=== PATIENT | female | born 1990 | race Caucasian/White ===

== ENCOUNTER 2020-05-01 22:09 | Observation (INO) | payer BC, SELFPAY ==
--- OUTSIDE RECORDS SUMMARY | 2020-05-01 22:12 | XMS REPORT | Continuity of Care Document ---
:1990 Author Organization [facility] t Address [address] [place] [address] Care Team Providers Name Role Phone Walter Quinn MD Attending Clinician Problems This patient has no known problems. Allergies, Adverse Reactions, Alerts This patient has no known allergies or adverse reactions. Medications This patient has no known medications. Procedures This patient has no known procedures. Encounters Start End Encounter Admission Attending Care Care Encounter Source Date/Time Date/Time Type Type Clinicians Facility Department ID 2020-05-01 2020-05-01 Office [place] [facility] [id number] 09:52:23 10:15:49 Visit [facility] [id number] [place] [id number] Professio [id number] nal 0[address] Office [address] 2018-12-25 2018-12-25 Emergency E [facility]BL [id number] [facility]BL 22:16:00 22:16:00 Results Test Description Test Time Test Comments Results Result Comments Source CT Brain/Head w/o 2019-01-08 Patient: Gretel CORADO 10:49:04 JASPER Date/Time01/08/2019 10:43 CSTReason for ExamHeadache(s)Repor tCT HEAD WITHOUT CONTRAST:HISTORY: Headaches, nausea, blurred visionCOMPARISON: NoneMultiple transverse images were obtained through the head. Radiation reduction was achieved by using the radiographic principal of ALARA.No abnormal areas of density are seen in the brain. The ventricular system has a normal appearance.No evidence of hemorrhage, mass or acute infarction is observed.The paranasal sinuses and mastoid air cells are well aerated.IMPRESSION:N egative study. Final Dictated by: MD Wilkins Ramon JulioDictated DT/TM: 01/08/2019 10:48 amSigned by: MD Wilkins Ramon JulioSigned (Electronic Signature): 01/08/2019 10:49 am Comprehensive Metabolic Panel 2019-01-08 10:39:14 Test Item Value Reference Range Interpretation Comme nts Sodium Level (test code = Sodium Level) 143 mmol/L 136-145 Potassium Level (test code = Potassium Level) 4.0 mmol/L 3.5-5.1 Chloride Level (test code = Chloride Level) 104 mmol/L 98-107 CO2 (test code = CO2) 27 mmol/L 21-32 Anion Gap (test code = Anion Gap) 12 mmol/L 7-16 BUN (test code = BUN) 9 mg/dL 7-18 Creatinine Level (test code = Creatinine Level) 0.70 mg/dL 0.60-1 .00 Glucose Level (test code = Glucose Level) 114 mg/dL 74-106 H Calcium Level (test code = Calcium Level) 9.0 mg/dL 8.5-10.1 Alk Phos (test code = Alk Phos) 102 IntlUnit/L 50-136 Bilirubin Total (test code = Bilirubin Total) .40 mg/dL .20-1.00 Albumin Level (test code = Albumin Level) 4.0 g/dL 3.4-5.0 Protein Total (test code = Protein Total) 7.4 g/dL 6.4-8.2 ALT (test code = ALT) 17 IntlUnit/L 12-78 AST (test code = AST) 16 IntlUnit/L 15-37 Creatine [id number] 10:39:14 Test Item Value Reference Range Interpretation Comments CK (test code = CK) 65 U/L 26-192 Comprehensive Metabolic [id number] 10:39:14 Test Item Value Reference Range Interpretation Comments Sodium Level (test code = 143 mmol/L 136-145 Sodium Level) Potassium Level (test code 4.0 mmol/L 3.5-5.1 = Potassium Level) Chloride Level (test code 104 mmol/L 98-107 = Chloride Level) CO2 (test code = CO2) 27 mmol/L 21-32 Anion Gap (test code = 12 mmol/L 7-16 Anion Gap) BUN (test code = BUN) 9 mg/dL 7-18 Creatinine Level (test 0.70 mg/dL 0.60-1.00 code = Creatinine Level) Glucose Level (test code = 114 mg/dL 74-106 H Glucose Level) Calcium Level (test code = 9.0 mg/dL 8.5-10.1 Calcium Level) Alk Phos (test code = Alk 102 IntlUnit/L 50-136 Phos) Bilirubin Total (test code .40 mg/dL .20-1.00 = Bilirubin Total) Albumin Level (test code = 4.0 g/dL 3.4-5.0 Albumin Level) Protein Total (test code = 7.4 g/dL 6.4-8.2 Protein Total) ALT (test code = ALT) 17 IntlUnit/L 12-78 AST (test code = AST) 16 IntlUnit/L 15-37 eGFR AA (test code = eGFR >60 mL/min/1.73 m2 N AA) Lipase [id number] 10:39:14 Test Item Value Reference Range Interpretation Comments Lipase Level (test code = Lipase 88 U/L 73-393 Level) Comprehensive Metabolic [id number] 10:39:14 Test Item Value Reference Range Interpretation Comments Sodium Level (test code = 143 mmol/L 136-145 Sodium Level) Potassium Level (test code 4.0 mmol/L 3.5-5.1 = Potassium Level) Chloride Level (test code 104 mmol/L 98-107 = Chloride Level) CO2 (test code = CO2) 27 mmol/L 21-32 Anion Gap (test code = 12 mmol/L 7-16 Anion Gap) BUN (test code = BUN) 9 mg/dL 7-18 Creatinine Level (test 0.70 mg/dL 0.60-1.00 code = Creatinine Level) Glucose Level (test code = 114 mg/dL 74-106 H Glucose Level) Calcium Level (test code = 9.0 mg/dL 8.5-10.1 Calcium Level) Alk Phos (test code = Alk 102 IntlUnit/L 50-136 Phos) Bilirubin Total (test code .40 mg/dL .20-1.00 = Bilirubin Total) Albumin Level (test code = 4.0 g/dL 3.4-5.0 Albumin Level) Protein Total (test code = 7.4 g/dL 6.4-8.2 Protein Total) ALT (test code = ALT) 17 IntlUnit/L 12-78 AST (test code = AST) 16 IntlUnit/L 15-37 eGFR AA (test code = eGFR >60 mL/min/1.73 m2 N AA) eGFR Non-AA (test code = >60 mL/min/1.73 m2 N eGFR Non-AA) Beta HCG [id number] 10:33:19 Test Item Value Reference Range Interpretation Comments Beta HCG, Serum Qualitative (test Negative Negative code = Beta HCG, Serum Qualitative) Complete Blood Count with [id number] 10:29:07 Test Item Value Reference Range Interpretation Comments WBC (test code = WBC) 5.4 x10 4.8-10.8 RBC (test code = RBC) 4.69 x10 4.20-5.50 Hgb (test code = Hgb) 12.6 g/dL 12.0-16.0 Hct (test code = Hct) 38.3 % 35.0-47.0 MCV (test code = MCV) 81.6 fL 80.0-95.0 RDW (test code = RDW) 11.4 % 11.5-14.5 L MCHC (test code = MCHC) 33.0 g/dL 31.0-36.0 MCH (test code = MCH) 26.9 pg 26.0-32.0 Platelets (test code = 334 x10 140-440 Platelets) MPV (test code = MPV) 8.1 fL 7.5-11.2 Slide Review (test code Auto N Resu lt created by = Slide Review) GL_SET_SLIDE _REVIEW_A UTO Instr WBC (test code = 5.4 N Instr WBC) Automated [id number] 10:29:07 Test Item Value Reference Range Interpretation Comments Neutro Auto (test code = Neutro Auto) 63.6 % N Lymph Auto (test code = Lymph Auto) 29.6 % N [place] Auto (test code = [place] Auto) 5.4 % N Eos, Auto (test code = Eos, Auto) 1.0 % N Basophil Auto (test code = Basophil 0.4 % N Auto) Neutro Absolute (test code = Neutro 3.5 x10 2.7-7.3 Absolute) Lymph Absolute (test code = Lymph 1.6 x10 0.8-3.5 Absolute) [place] Absolute (test code = [place] 0.3 x10 0.3-0.9 Absolute) Eos Absolute (test code = Eos 0.0 x10 0.0-0.3 Absolute) Baso Absolute (test code = Baso 0.0 x10 0.0-0.1 Absolute)
[2020-05-01] MEDS ORDERED: NA CHLORIDE 0.9% 1,000 ML ONE (23:16)
[2020-05-01] MEDS ORDERED: ASPIRIN EC 81 MG TAB PO ONE (23:16)
[2020-05-02 00:04] LABS: Absolute Lymphocytes (CBC) 2.4 K/uL (0.7-4.9); Basophils % 0.6 % (0-1.3); Hematocrit 38.6 % (36.0-45.0); Lymphocytes % 28.3 % (15.3-44.8); MPV 8.8 fL (7.6-11.3)
[2020-05-02 00:31] LABS: ALT/SGPT 27 U/L (12-78); AST/SGOT 12 U/L (15-37); Alkaline Phosphatase 112 U/L (45-117); BUN Blood Urea Nitrogen 9 mg/dL (7-18); Bicarbonate 25 mmol/L (21-32); Bilirubin Direct < 0.1 mg/dL (0-0.2); Bilirubin Total 0.5 mg/dL (0.2-1.0); Glucose Level 90 mg/dL (74-106); Lipase 94 U/L (73-393); Magnesium 2.4 mg/dL (1.8-2.4); Potassium 3.5 mmol/L (3.5-5.1); Protein, Total 8.2 g/dL (6.4-8.2); Sodium Level 139 mmol/L (136-145); Troponin (Emerg Dept Use Only) < 0.02 ng/mL (0.0-0.045)
--- NOTE | 2020-05-02 00:44 | EDPHYS ---
Physician Documentation [facility] Name: Arianne Glass Age: 29 yrs Sex: Female : 1990 Arrival Date: 05/01/2020 Time: 22:12 Bed 19 Private MD: ED Physician Gabe Fisher HPI: 05/01 23:59 This 29 yrs old Female presents to ER via Ambulatory with complaints of Chest stephanie Pain, Back Pain. 23:59 The patient or guardian reports chest pain that is located primarily in the substernal stephanie area. The pain radiates to back. Associated signs and symptoms: Pertinent positives: lightheadedness, shortness of breath. The chest pain is described as causing indigestion, a pressure, squeezing. Duration: The patient or guardian reports multiple episodes, with no pattern. Severity of pain: At its worst the pain was moderate in the emergency department the pain has improved. The patient has not experienced similar symptoms in the past. 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 - Social history:: Smoking status: Patient denies any tobacco usage or history of. - Family history:: not pertinent. ROS: 23:59 Constitutional: Negative for fever, chills, and weight loss, Eyes: Negative for injury, stephanie pain, redness, and discharge, ENT: Negative for injury, pain, and discharge, Neck: Negative for injury, pain, and swelling, Respiratory: Negative for shortness of breath, cough, wheezing, and pleuritic chest pain, Abdomen/GI: Negative for abdominal pain, nausea, vomiting, diarrhea, and constipation, Back: Negative for injury and pain, : Negative for injury, bleeding, discharge, and swelling, MS/Extremity: Negative for injury and deformity, Skin: Negative for injury, rash, and discoloration, Neuro: Negative for headache, weakness, numbness, tingling, and seizure, Psych: Negative for depression, anxiety, suicide ideation, homicidal ideation, and hallucinations, Allergy/Immunology: Negative for hives, rash, and allergies, Endocrine: Negative for neck swelling, polydipsia, polyuria, polyphagia, and marked weight changes, Hematologic/Lymphatic: Negative for swollen nodes, abnormal bleeding, and unusual bruising. 23:59 Cardiovascular: Positive for chest pain. Exam: 23:59 Constitutional: This is a well developed, well nourished patient who is awake, alert, stephanie and in no acute distress. Head/Face: Normocephalic, atraumatic. Eyes: Pupils equal round and reactive to light, extra-ocular motions intact. Lids and lashes normal. Conjunctiva and sclera are non-icteric and not injected. Cornea within normal limits. Periorbital areas with no swelling, redness, or edema. ENT: Nares patent. No nasal discharge, no septal abnormalities noted. Tympanic membranes are normal and external auditory canals are clear. Oropharynx with no redness, swelling, or masses, exudates, or evidence of obstruction, uvula midline. Mucous membranes moist. Neck: Trachea midline, no thyromegaly or masses palpated, and no cervical lymphadenopathy. Supple, full range of motion without nuchal rigidity, or vertebral point tenderness. No Meningismus. Chest/axilla: Normal chest wall appearance and motion. Nontender with no deformity. No lesions are appreciated. Cardiovascular: Regular rate and rhythm with a normal S1 and S2. No gallops, murmurs, or rubs. Normal PMI, no JVD. No pulse deficits. Respiratory: Lungs have equal breath sounds bilaterally, clear to auscultation and percussion. No rales, rhonchi or wheezes noted. No increased work of breathing, no retractions or nasal flaring. Abdomen/GI: Soft, non-tender, with normal bowel sounds. No distension or tympany. No guarding or rebound. No evidence of tenderness throughout. Back: No spinal tenderness. No costovertebral tenderness. Full range of motion. Female : Normal external genitalia. Skin: Warm, dry with normal turgor. Normal color with no rashes, no lesions, and no evidence of cellulitis. MS/ Extremity: Pulses equal, no cyanosis. Neurovascular intact. Full, normal range of motion. Neuro: Awake and alert, GCS 15, oriented to person, place, time, and situation. Cranial nerves II-XII grossly intact. Motor strength 5/5 in all extremities. Sensory grossly intact. Cerebellar exam normal. Normal gait. Psych: Awake, alert, with orientation to person, place and time. Behavior, mood, and affect are within normal limits. 05/02 00:03 ECG was reviewed by the Attending Physician. [facility] Vital Signs: 05/01 22:35 BP 110 / 77; Pulse 87; Resp 16; Pulse Ox 100% on R/A; sg 23:30 BP 115 / 77; Pulse 79; Resp 20; Pulse Ox 99% on R/A; ll2 05/02 00:30 BP 108 / 73; Pulse 66; Resp 20; Pulse Ox 99% on R/A; ll2 01:30 BP 117 / 75; Pulse 70; Resp 22; Pulse Ox 100% on R/A; ll2 MDM: 05/01 22:32 Patient medically screened. [facility] 05/02 00:01 Differential diagnosis: abnormal EKG, acute pericarditis, coronary artery disease stephanie cholecystitis, Cholelithiasis hiatal hernia, pancreatitis, pulmonary embolus, stable angina, thoracic aortic disection, unstable angina. HEART Score: History: Moderately Suspicious (1), ECG: Normal (0), Age: < or = 45 years (0), Risk Factors: No Risk Factors Known (0), Troponin: < or = 1 x Normal Limit (0). The patient's deep vein thrombosis risk score was calculated as follows: Total Score: 0. This patient was found to be at low risk for a deep vein thrombosis by using the Well's assessment criteria. The patient's pulmonary embolism risk score was calculated as follows: Total Score: 0-2 points. This patient was found to be at low risk for a pulmonary embolism by using the Well's assessment criteria. MIROSLAVA Risk Score: TOTAL SCORE = 0. Data reviewed: vital signs, nurses notes, lab test result(s), EKG, radiologic studies, CT scan, plain films. 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 Test interpretation: by ED physician or midlevel provider: ECG, plain radiologic studies. Counseling: I had a detailed discussion with the patient and/or guardian regarding: the historical points, exam findings, and any diagnostic results supporting the discharge/admit diagnosis, lab results, radiology results. 05/01 22:35 Order name: Basic Metabolic Panel [facility] 05/01 22:35 Order name: CBC with Diff [facility] 02/24 22:35 Order name: LFT's [facility] 05/01 22:35 Order name: Magnesium; Complete Time: 00:39 [facility] 05/01 22:35 Order name: Troponin (emerg Dept Use Only); Complete Time: 00:39 [facility] 05/01 22:35 Order name: D-Dimer; Complete Time: 00:25 [facility] 05/01 22:35 Order name: Lipase; Complete Time: 00:39 [facility] 05/01 22:35 Order name: Basic Metabolic Panel; Complete Time: 00:39 [facility] 05/01 22:35 Order name: CBC with Automated Diff; Complete Time: 00:25 [facility] 05/01 22:35 Order name: Liver (Hepatic) Function; Complete Time: 00:39 [facility] 05/02 01:23 Order name: Sedimentation Rate, [place] [facility] 05/02 01:33 Order name: Test, Serum [facility] 05/01 22:35 Order name: XRAY Chest (1 view) [facility] 05/01 22:35 Order name: EKG; Complete Time: 22:36 [facility] 05/01 22:35 Order name: Cardiac monitoring; Complete Time: 06:26 [facility] 05/01 22:35 Order name: EKG - Nurse/Tech; Complete Time: 06:26 [facility] 05/01 22:35 Order name: IV Saline Lock; Complete Time: 06:26 [facility] 05/01 23:58 Order name: CT Aorta for Dissection: pe and dissection [facility] 05/02 01:45 Order name: Urine --Ancillary (enter results) tt3 05/02 01:45 Order name: Urine Dipstick--Ancillary (enter results) tt3 05/02 01:59 Order name: SARS-COV-2 RT PCR; Complete Time: 02:25 [facility] 05/01 22:35 Order name: Labs collected and sent; Complete Time: 06:27 [facility] 05/01 22:35 Order name: O2 Per Protocol; Complete Time: 06:26 [facility] 05/01 22:35 Order name: O2 Sat Monitoring; Complete Time: 06:26 [facility] 05/01 22:35 Order name: Urine Dipstick-Ancillary (obtain specimen); Complete Time: 06:03 [facility] 05/01 22:35 Order name: Urine Test (obtain specimen); Complete Time: 06:03 [facility] EC:03 Rate is 77 beats/min. Rhythm is regular. QRS Lindsay is Normal. TN interval is normal. QRS stephanie interval is normal. QT interval is normal. No Q waves. T waves are Normal. No ST changes noted. Clinical impression: NSR w/ Non-specific ST/T Changes and No evidence of ischemia. Interpreted by me. Reviewed by me. Administered Medications: 05/01 23:00 Drug: NS 0.9% 500 ml Route: IV; Rate: bolus; Site: right antecubital; ll2 23:35 Follow up: Response: No adverse reaction; IV Status: Completed infusion; IV Intake: ll2 1000ml 23:00 Drug: Aspirin Chewable Tablet 324 mg Route: PO; ll2 05/02 00:00 Follow up: Response: No adverse reaction ll2 00:30 Drug: morphine 2 mg Route: IVP; Site: right antecubital; ll2 00:30 Drug: Zofran (Ondansetron) 4 mg Route: IVP; Site: right antecubital; ll2 01:30 Follow up: Response: No adverse reaction ll2 01:25 Not Given (Physician Discretion): Aspirin Chewable Tablet 162 mg PO once jr8 01:25 Not Given (Physician Discretion): Lopressor 25 mg PO once jr8 02:34 Drug: Pepcid 20 mg Route: IVP; Site: right antecubital; ll2 Disposition: 05/02/20 00:43 Hospitalization ordered by Michael Mckinney for Observation. Preliminary diagnosis is Other chest pain. - Bed requested for Telemetry/MedSurg (observation). - Status is Observation. ll2 - Condition is Stable. - Problem is new. - Symptoms have improved. Signatures: Dispatcher [employer] [facility] Ney Bishop RN BEBA sg Gabe Fisher MD MD cha Roszak, Josh, PA PA jr8 Elenita Cabrera RN RN tl1 Mabel Christine RN RN ll2 Corrections: (The following items were deleted from the chart) 00:55 00:43 Hospitalization Ordered by Andres Katz MD for Observation. Preliminary sg diagnosis is Other chest pain. Bed requested for Telemetry/MedSurg (observation). Status is Observation. Condition is Stable. Problem is new. Symptoms have improved. [facility] 01:11 01:03 CORONAVIRUS ordered. [facility] EDMS 02:02 00:55 05/02/2020 00:43 Hospitalization Ordered by Michael Mckinney for Observation. tl1 Preliminary diagnosis is Other chest pain. Bed requested for Telemetry/MedSurg (observation). Status is Observation. Condition is Stable. Problem is new. Symptoms have improved. sg 03:11 02:02 05/02/2020 00:43 Hospitalization Ordered by Michael Mckinney for Observation. ll2 Preliminary diagnosis is Other chest pain. Bed requested for Telemetry/MedSurg (observation). Status is Observation. Condition is Stable. Problem is new. Symptoms have improved. tl1
--- NOTE | 2020-05-02 00:44 | ER ---
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 No trauma or injury reported, states the pain has worsened tonight, states having pain in the upper back as well. Coronavirus screen: Client denies travel out of the [place] in the last 14 days. Ebola Screen: Patient negative for fever greater than or equal to 101.5 degrees Fahrenheit, and additional compatible Ebola Virus Disease symptoms Patient denies exposure to infectious person. Patient denies travel to an Ebola-affected area in the 21 days before illness onset. No symptoms or risks identified at this time. Initial Sepsis Screen: Does the patient meet any 2 criteria? No. Patient's initial sepsis screen is negative. Does the patient have a suspected source of infection? No. Patient's initial sepsis screen is negative. Risk Assessment: Do you want to hurt yourself or someone else? Patient reports no desire to harm self or others. Onset of symptoms was May 01, 2020. Care prior to arrival: None. Transition of care: patient was not received from another setting of care. 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 - Social history:: Smoking status: Patient denies any tobacco usage or history of. - Family history:: not pertinent. Screenin/25 01:51 Abuse screen: Denies threats or abuse. Nutritional screening: No deficits noted. ll2 Tuberculosis screening: No symptoms or risk factors identified. Fall Risk None identified. Assessment: 05/01 22:30 General: Appears in no apparent distress. Behavior is calm, cooperative, appropriate ll2 for age. Pain: Complains of pain in back and abdomen. Pain: Pain radiates to back Pain began suddenly. Neuro: Level of Consciousness is awake, alert, obeys commands, Oriented to person, place, time, situation. Cardiovascular: Patient's skin is warm and dry. Respiratory: Airway is patent Respiratory effort is even, unlabored, Respiratory pattern is regular, symmetrical. GI: No signs and/or symptoms were reported involving the gastrointestinal system. : No signs and/or symptoms were reported regarding the genitourinary system. EENT: No signs and/or symptoms were reported regarding the EENT system. Derm: Skin is intact, is healthy with good turgor, Skin is pink, warm \T\ dry. 23:30 Reassessment: Patient and/or family updated on plan of care and expected duration. Pain ll2 level reassessed. Patient is alert, oriented x 3, equal unlabored respirations, skin warm/dry/pink. 05/02 00:30 Reassessment: Patient and/or family updated on plan of care and expected duration. Pain ll2 level reassessed. Patient is alert, oriented x 3, equal unlabored respirations, skin warm/dry/pink. 01:30 Reassessment: Patient and/or family updated on plan of care and expected duration. Pain ll2 level reassessed. Patient is alert, oriented x 3, equal unlabored respirations, skin warm/dry/pink. Vital Signs: 05/01 22:35 BP 110 / 77; Pulse 87; Resp 16; Pulse Ox 100% on R/A; sg 23:30 BP 115 / 77; Pulse 79; Resp 20; Pulse Ox 99% on R/A; ll2 05/02 00:30 BP 108 / 73; Pulse 66; Resp 20; Pulse Ox 99% on R/A; ll2 01:30 BP 117 / 75; Pulse 70; Resp 22; Pulse Ox 100% on R/A; ll2 ED Course: 05/01 22:12 Patient arrived in ED. am4 22:30 Initial lab(s) drawn, by me, sent to lab. COVID swab sent to lab. Inserted saline lock: ll2 20 gauge in right antecubital area, using aseptic technique. Blood collected. Patient maintains SpO2 saturation greater than 95% on room air. 22:32 Gabe Fisher MD is Attending Physician. stephanie 22:32 Arm band placed on. sg 22:34 Triage completed. sg 22:54 Mabel Christine RN is Primary Nurse. ll2 22:55 XRAY Chest (1 view) In Process Unspecified. EDMS 05/02 00:39 Andres Katz MD is Hospitalizing Provider. stephanie 00:54 Michael Mckinney is Hospitalizing Provider. sg 01:51 Patient has correct armband on for positive identification. Placed in gown. Bed in low ll2 position. Call light in reach. Side rails up X 1. panel monitor on. Pulse ox on. NIBP on. 01:51 No provider procedures requiring assistance completed. ll2 02:18 CT Aorta for Dissection: pe and dissection In Process Unspecified. EDMS 03:11 Patient transferred, IV remains in place. ll2 06:26 LFT's Sent. ll2 06:26 CBC with Diff Sent. ll2 06:26 Basic Metabolic Panel Sent. ll2 Administered Medications: 05/01 23:00 Drug: NS 0.9% 500 ml Route: IV; Rate: bolus; Site: right antecubital; ll2 23:35 Follow up: Response: No adverse reaction; IV Status: Completed infusion; IV Intake: ll2 1000ml 23:00 Drug: Aspirin Chewable Tablet 324 mg Route: PO; ll2 05/02 00:00 Follow up: Response: No adverse reaction ll2 00:30 Drug: morphine 2 mg Route: IVP; Site: right antecubital; ll2 00:30 Drug: Zofran (Ondansetron) 4 mg Route: IVP; Site: right antecubital; ll2 01:30 Follow up: Response: No adverse reaction ll2 01:25 Not Given (Physician Discretion): Aspirin Chewable Tablet 162 mg PO once jr8 01:25 Not Given (Physician Discretion): Lopressor 25 mg PO once jr8 02:34 Drug: Pepcid 20 mg Route: IVP; Site: right antecubital; ll2 Intake: 05/01 23:35 IV: 1000ml; Total: 1000ml. ll2 Outcome: 05/02 00:43 Decision to Hospitalize by Provider. stephanie 03:09 Admitted to Med/surg accompanied by tech, via wheelchair, Report called to BEBA breaux ll2 03:09 Condition: stable 03:09 Instructed on the need for admit. 03:11 Patient left the ED. ll2 Signatures: Dispatcher [employer] EDNey Hernández RN RN sg Anderson, Corey, MD MD cha [place], Lacie, RN RN ll2 Dana Meadows Josh PA jr8
[2020-05-02] MEDS ORDERED: ONDANSETRON 4 MG/2 ML VIAL ONE (00:48)
[2020-05-02] MEDS ORDERED: MORPHINE 2 MG/ML SYR ONE (00:48)
[2020-05-02] MEDS ORDERED: FAMOTIDINE 20 MG/2 ML VIAL IV ONE (01:31)
[2020-05-02] MEDS ORDERED: METOPROLOL TAR 25 MG TAB ONE (01:37)
--- NOTE | 2020-05-02 02:40 | P.HP ---
Certification for Inpatient Patient admitted to: Observation With expected LOS: <2 Midnights Patient will require the following post-hospital care: None Practitioner: I am a practitioner with admitting privileges, knowledge of patient current condition, hospital course, and medical plan of care. Services: Services provided to patient in accordance with Admission requirements found in Title 42 Section 412.3 of the Code of Federal Regulations <Trevin Cain - Last Filed: 05/02/20 02:34> Patient History Date of Service: 05/02/20 Primary Care Provider: [facility] Reason for admission: Chest Pain History of Present Illness: This is a 29 y/o F with no medical or surgical history that presented to ED after having persistent chest pressure that started this morning. Patient describes pain as pressure and crushing in nature. Radiation to back, left arm, and neck. Denies n/v, diaphoresis. Stated that she has never had something like this before. Nothing makes it better or worse. Tried taking two rounds of ibuprofen throughout day along with antacids but still without relief. Stated that her grandfathers on both sides had MIs in there 40s and bypass surgery. Patient worked up in ER and found to have troponin < 0.02. Sodium 139, potassium 3.5, chloride 106, bicarb 25, BUN 9, creatinine 0.71, and glucose of 90. H/H 12.8 and 38.6 respectively. WBC 8.6 and platelet of 375. CXR and dissection CT negative. EKG without acute ischemia. Patient stated that she was finally able to get some relief with morphine. Medicine consulted at that time for further evaluation and admission. Home medications list reviewed: Yes - Past Medical/Surgical History Has patient received pneumonia vaccine in the past: No Diabetic: No Past Medical History: Patient denies medical history Past Surgical History: Patient denies surgical history - Social History Smoking Status: Never smoker Smoking therapy provided: No Alcohol use: Yes CD- Drugs: No Caffeine use: Yes Place of Residence: Home <Trevin Cain - Last Filed: 05/02/20 02:34> Date of Service: 05/02/20 - Family History Father -: Heart disease, Hypertension, Seizures Mother -: Diabetes, Other (see notes) Notes: Uterine tumour <stormy painting - Last Filed: 05/02/20 12:09> Allergies No Known Allergies Allergy (Unverified 05/02/20 01:02) Home Medications: Aspirin [Aspirin EC 81 MG] 81 mg PO DAILY #30 tablet. 05/02/20 Atorvastatin Calcium [Lipitor] 20 mg PO BEDTIME #30 tab 05/02/20 Review of Systems General: Unremarkable Eyes: Unremarkable ENT: Unremarkable Respiratory: Unremarkable Cardiovascular: Chest Pain Gastrointestinal: Unremarkable Genitourinary: Unremarkable Musculoskeletal: Unremarkable Integumentary: Unremarkable Neurological: Unremarkable Lymphatics: Unremarkable <Trevin Cain - Last Filed: 05/02/20 02:34> Physical Examination - Vital Signs Blood Pressure: 117/75 Pulse: 70 Respirations: 16 Pulse Ox (%): 100 - Physical Exam General: Alert, In no apparent distress, Oriented x3, Cooperative HEENT: PERRLA, Mucous membr. moist/pink, EOMI Neck: Supple, 2+ carotid pulse no bruit, JVD not distended, No Thyromegaly Respiratory: Clear to auscultation bilaterally, Normal air movement Cardiovascular: No edema, Normal pulses, Regular rate/rhythm, Normal S1 S2, No gallops, No rubs, No murmurs Capillary refill: <2 Seconds Gastrointestinal: Normal bowel sounds, Soft and benign, Non-distended, No ascites, No tenderness, No masses, No rebound, No guarding Musculoskeletal: No clubbing, No swelling, No contractures, No erythema, No tenderness, No warmth Integumentary: No rashes, No breakdown, No significant lesion, No tenderness/swelling, No erythema, No warmth, No cyanosis Neurological: Normal speech, Normal strength at 5/5 x4 extr, Normal tone, Sensation intact, Cranial nerves 3-12 intact, Normal affect Lymphatics: No axilla or inguinal lymphadenopathy - Studies Laboratory Data (last 24 hrs) 05/01/20 23:52: WBC 8.60, Hgb 12.8, Hct 38.6, Plt Count 375 05/01/20 23:52: Sodium 139, Potassium 3.5, BUN 9, Creatinine 0.71, Glucose 90, Magnesium 2.4, Total Bilirubin 0.5, AST 12 L, ALT 27, Alkaline Phosphatase 112, Lipase 94 <Trevin Cain - Last Filed: 05/02/20 02:34> - Studies Laboratory Data (last 24 hrs) 05/01/20 23:52: WBC 8.60, Hgb 12.8, Hct 38.6, Plt Count 375 05/01/20 23:52: Sodium 139, Potassium 3.5, BUN 9, Creatinine 0.71, Glucose 90, Magnesium 2.4, Total Bilirubin 0.5, AST 12 L, ALT 27, Alkaline Phosphatase 112, Lipase 94 <stormy painting - Last Filed: 05/02/20 12:09> Assessment and Plan - Problems (Diagnosis) (1) Chest pain Current Visit: Yes Status: Acute Qualifiers: Chest pain type: unspecified Qualified Code(s): R07.9 - Chest pain, unspecified - Plan 1. Patient admitted to telemetry unit for observation where she will be on cardiac monitoring and will have repeat v/s 2. Patient will have trended troponins and EKGs as necessary 3. Aspirin daily 4. Cardiology consulted for further recommendations Discharge Plan: Home Plan to discharge in: 24 Hours - Advance Directives Does patient have a Living Will: No Does patient have a Durable POA for Healthcare: No - Code Status/Comfort Care Code Status Assessed: Yes Code Status: Full Code Critical Care: No Time Spent Managing Pts Care (In Minutes): 70 <Trevin Cain - Last Filed: 05/02/20 02:34> Physician Review: Patient Assessed, Agree with Above Assessment and Plan Physician Review Additional Text: Chest pain Significant family history of CAD. other risk factors: Obesity. Plan: Trend troponin. Start aspirin <stormy painting - Last Filed: 05/02/20 12:09>
[2020-05-02] MEDS ORDERED: LORazepam 2 MG/ML VIAL ONE (03:13)
[2020-05-02 03:18] VITALS: BMI 37.6
[2020-05-02] MEDS ORDERED: ONDANSETRON 4 MG/2 ML VIAL IV PRN (03:22)
[2020-05-02] MEDS ORDERED: ACETAMINOPHEN 500 MG TAB PO PRN (03:22)
[2020-05-02] MEDS ORDERED: MORPHINE 4 MG/ML SYR IV PRN (03:22)
--- NOTE | 2020-05-02 05:35 | EKG ---
Test Date: 2020-05-01 Test Time: 23:12:51 [employer] Principal: LL MEASUREMENT RESULTS: Intervals: Rate: 77 MS: 172 QRSD: 90 QT: 384 QTc: 434 Lorraine: P: 57 MS: 172 QRS: 27 T: 53 INTERPRETIVE STATEMENTS: Normal sinus rhythm Possible Left atrial enlargement Borderline ECG No previous ECG available for comparison Electronically Signed On 05-02-20 05:35:13 AUTOMOTIVE REFINISHER by Tong Alvarenga
[2020-05-02] MEDS ORDERED: LORazepam 2 MG/ML VIAL IV ONE (06:30)
--- NOTE | 2020-05-02 07:36 | RAD REPORT ---
EXAM DESCRIPTION: RAD - Chest Single View - 05/01/2020 10:55 pm CLINICAL HISTORY: CHEST PAIN TECHNIQUE: AP portable chest image was obtained 05/01/2020 10:55 pm . FINDINGS: Lungs are clear. Overlying than soft tissue density increases opacification over the lower lung holcomb. Heart and vasculature are normal. No measurable pleural effusion and no pneumothorax. N o acute bony abnormality seen. No acute aortic findings suspected. IMPRESSION: No acute cardiopulmonary process.
[2020-05-02] MEDS ORDERED: ASPIRIN EC 81 MG TAB PO SCH (09:00)
[2020-05-02] MEDS ORDERED: INFLUENZA VACCINE (for 3y+) 0.5 ML DOSE IMVAC ONE (10:00)
[2020-05-02 10:44] VITALS: O2SAT 98
[2020-05-02 12:07] VITALS: BP 110/60; TEMP 97.9
--- NOTE | 2020-05-02 12:14 | P.DS ---
Admission Date: 05/02/20 Discharge Date: 05/02/20 Primary Care Provider: [facility] Clinic Disposition: ROUTINE DISCHARGE Discharge Condition: FAIR Reason for Admission: Chest Pain - Problems (1) Obesity Current Visit: Yes Status: Acute (2) Hyperlipidemia Current Visit: Yes Status: Acute (3) Chest pain Current Visit: Yes Status: Acute Qualifiers: Chest pain type: unspecified Qualified Code(s): R07.9 - Chest pain, unspecified Brief History of Present Illness: 29-year-old woman with no known past medical history presented to the emergency department with a complaint of chest pain of sudden onset. Her initial troponin in the ED was negative. Chest x-ray unremarkable. CTA thorax was performed which was negative for aortic dissection. Patient reports a significant history of coronary artery disease in the family. She was hospitalized for ACS rule out. Hospital Course: Patient placed under observation. Troponin trended negative. She was chest pain-free during the observation period. Her vitals were stable, EKG showed no ischemic changes. ACS has been ruled out. Her total cholesterol 179 and LDL 110. Stress test is recommended. Patient prefers exercise stress test to nuclear stress test. Dr. Alvarenga has been informed and patient is discharged to follow with Dr. Alvarenga 's office tomorrow for arrangement for stress test. She is prescribed aspirin and lipitor. Vital Signs/Physical Exam: Temp Pulse Resp BP Pulse Ox 97.9 F 80 16 110/60 100 05/02/20 12:00 05/02/20 12:00 05/02/20 12:00 05/02/20 12:00 05/02/20 12:00 General: Alert, In no apparent distress, Oriented x3 Neck: Supple, JVD not distended Respiratory: Clear to auscultation bilaterally, Normal air movement Cardiovascular: No edema, Regular rate/rhythm, Normal S1 S2 Gastrointestinal: Soft and benign, Non-distended Musculoskeletal: No swelling Integumentary: No rashes Neurological: Other (No focal motor deficit.) Laboratory Data at Discharge: WBC 8.60 K/uL (4.3-10.9) 05/01/20 23:52 Hgb 12.8 g/dL (12.0-15.0) 05/01/20 23:52 Hct 38.6 % (36.0-45.0) 05/01/20 23:52 Plt Count 375 K/uL (152-406) 05/01/20 23:52 Sodium 139 mmol/L (136-145) 05/01/20 23:52 Potassium 3.5 mmol/L (3.5-5.1) 05/01/20 23:52 BUN 9 mg/dL (7-18) 05/01/20 23:52 Creatinine 0.71 mg/dL (0.55-1.3) 05/01/20 23:52 Glucose 90 mg/dL (74-106) 05/01/20 23:52 Magnesium 2.4 mg/dL (1.8-2.4) 05/01/20 23:52 Total Bilirubin 0.5 mg/dL (0.2-1.0) 05/01/20 23:52 AST 12 U/L (15-37) L 05/01/20 23:52 ALT 27 U/L (12-78) 05/01/20 23:52 Alkaline Phosphatase 112 U/L (45-117) 05/01/20 23:52 Troponin I < 0.02 ng/mL (0.0-0.045) 05/02/20 07:08 Triglycerides 105 mg/dL (<150) 05/02/20 03:56 Cholesterol 179 mg/dL (<200) 05/02/20 03:56 HDL Cholesterol 48 mg/dL (40-60) 05/02/20 03:56 Cholesterol/HDL Ratio 3.73 05/02/20 03:56 Lipase 94 U/L (73-393) 05/01/20 23:52 Home Medications: Aspirin [Aspirin EC 81 MG] 81 mg PO DAILY #30 tablet. 05/02/20 Atorvastatin Calcium [Lipitor] 20 mg PO BEDTIME #30 tab 05/02/20 New Medications: Aspirin [Aspirin EC 81 MG] 81 mg PO DAILY #30 tablet. Atorvastatin Calcium [Lipitor] 20 mg PO BEDTIME #30 tab Physician Discharge Instructions: Please call Dr. Alvarenga's office tomorrow for arrangement for Exercise stress test. Diet: AHA Activity: Ad lisa Followup: Tong Alvarenga MD [ACTIVE - CAN ADMIT] - 1-2 Days Unknown,U [Primary Care Provider] -
--- NOTE | 2020-05-02 15:43 | RAD REPORT ---
EXAM DESCRIPTION: CT - Angio Aorta For Dissection - 05/02/2020 7:01 am CLINICAL HISTORY: The patient is 29 years old and is Female; CHEST PAIN TECHNIQUE: Axial computed tomographic angiography images of the chest, abdomen and pelvis with intra venous contrast. Sagittal and coronal reformatted images were created and reviewed. This CT exam was performed using one or more of the following dose reduction techniques: automated exposure cont rol, adjustment of the mA and/or kV according to patient size, and/or use of iterative reconstruction technique. MIP reconstructed images were created and reviewed. COMPARISON: No relevant prior studies available. FINDINGS: LIMITATIONS: Examination is limited secondary to the timing of contrast. VASCULATURE: AORTA: No acute findings. No aortic aneurysm. Contrast timing suboptimal to evaluate for dissec tion. PULMONARY ARTERIES: Unremarkable as visualized. Contrast is suboptimal to evaluate for pulmonary thromboembolus. GREAT VESSELS OF AORTIC ARCH: No acute findings. Contrast is suboptimal to evaluate for dissectio n. No arterial occlusion or significant stenosis. CELIAC TRUNK AND MESENTERIC ARTERIES: No acute findings. No occlusion or significant stenosis. RENAL ARTERIES: No acute findings. No occlusion or significant stenosis. ILIAC ARTERIES: No acute findings. No occlusion or significant stenosis. CHEST: LUNGS: A 3 mm left lower lobe pulmonary nodule is present. No follow-up imaging is recommended. T he lungs are otherwise clear. The tracheobronchial tree is widely patent. PLEURAL SPACE: Unremarkable. No significant effusion. No pneumothorax. HEART: Unremarkable. No cardiomegaly. No significant pericardial effusion. ABDOMEN: LIVER: The liver is enlarged and mildly fatty. GALLBLADDER AND BILE DUCTS: Unremarkable. No calcified stones. No ductal dilation. PANCREAS: Unremarkable. No ductal dilation. No mass. SPLEEN: Unremarkable. No splenomegaly. ADRENALS: Unremarkable. No mass. KIDNEYS AND URETERS: There is no hydronephrosis or hydroureter of either kidney. Contrast is note d throughout the ureters. No solid mass. STOMACH AND BOWEL: The stomach is filled with fluid and air. The small bowel is normal in caliber . Minimal stool is noted throughout the colon. There is no mucosal thickening or evidence of bowel ob struction. PELVIS: APPENDIX: The appendix is normal in caliber without surrounding inflammation. BLADDER: The bladder is well distended. REPRODUCTIVE: Unremarkable as visualized. CHEST, ABDOMEN and PELVIS: INTRAPERITONEAL SPACE: Unremarkable. No significant fluid collection. No free air. BONES/JOINTS: No acute fracture. No dislocation. SOFT TISSUES: Bilateral breast implants are present. LYMPH NODES: Unremarkable. No enlarged lymph nodes. IMPRESSION: 1. No evidence of aortic aneurysm. Evaluation for dissection is suboptimal secondary t o the timing of contrast. 2. No acute findings on this contrasted CT of the chest, abdomen, and pelvis to explain the patient 's symptoms. Electronically signed by: Kassi Sifuentes MD 05/02/2020 2:26 AM APPLIED STATISTICIAN Due to temporary technical issues with the PACS/Fluency reporting system, reports are being signed by the in house radiologists without review as a courtesy to insure prompt reporting. The interpreting radiologist is fully responsible for the content of the report.
== END 2020-05-02 13:59 | disposition home or self-care (01) ==
LOC: ER 22:09 → 2ND 05-02 02:22
PROVIDERS: ADMIT Internal Medicine; ATTEND Internal Medicine
DX: R07.9 Chest pain, unspecified (principal); E78.5 Hyperlipidemia, unspecified; E66.9 Obesity, unspecified; Z68.37 Body mass index [BMI] 37.0-37.9, adult; Z20.822 Contact with and (suspected) exposure to COVID-19; Z79.82 Long term (current) use of aspirin; Z82.49 Family history of ischemic heart disease and other diseases of the circulatory system; Z83.3 Family history of diabetes mellitus; Z82.0 Family history of epilepsy and other diseases of the nervous system
CPT/HCPCS: 36415; 71045; 71275; 74175; 80048; 80061; 80076; 82947; 83690; 83735; 84484; 84703; 85025; 85379; 85652; 93005; 96361; 96374; 96375; 99285; G0378; J2270; J2405; J7030; Q9967; U0003

== ENCOUNTER 2020-05-19 19:26 | Emergency (ER) | payer SELFPAY ==
--- OUTSIDE RECORDS SUMMARY | 2020-05-19 19:28 | XMS REPORT | Continuity of Care Document ---
:1990 Author Organization [facility] t Address [address] [place] [address] Care Team Providers Name Role Phone Charu CAGE Attending Clinician Sagar BARNARD Attending Clinician Walter Quinn MD Attending Clinician Problems This patient has no known problems. Allergies, Adverse Reactions, Alerts This patient has no known allergies or adverse reactions. Medications This patient has no known medications. Procedures This patient has no known procedures. Encounters Start End Encounter Admission Attending Care Care Encounter Source Date/Time Date/Time Type Type Clinicians Facility Department ID 2020-05-17 2020-05-17 Emergency E [facility] [id number] 20:32:00 20:32:00 2020-05-03 2020-05-03 Refill ROEL Box [id number] 00:00:00 00:00:00 Sheila Chaordix [id number] Dez [id number] Ingrid [id number] nal [address] 2020-05-02 2020-05-02 Telephone ROEL Keith [id number] 00:00:00 00:00:00 [place] Garces [id number] [place] [id number] Ingrid [id number] nal 059 Building 2020-05-01 2020-05-01 Office ROEL Quinn [id number] 09:52:23 10:15:49 Visit [facility] [id number] Walter Garces [id number] Ingrid [id number] nal 044 [address] 2018-12-25 2018-12-25 [...] code = AST) 16 IntlUnit/L 15-37 Creatine [id number] 10:39:14 Test Item Value Reference Range Interpretation Comments CK (test code = CK) 65 U/L 26-192 Comprehensive Metabolic [id number] 10:39:14 Test Item Value Reference Range Interpretation [...] eGFR >60 mL/min/1.73 m2 N AA) Lipase [id number] 10:39:14 Test Item Value Reference Range Interpretation Comments Lipase Level (test code = Lipase 88 U/L 73-393 Level) Comprehensive Metabolic [id number] 10:39:14 Test Item Value Reference Range Interpretation [...] mL/min/1.73 m2 N eGFR Non-AA) Beta HCG [id number] 10:33:19 Test Item Value Reference Range Interpretation Comments Beta HCG, Serum Qualitative (test Negative Negative code = Beta HCG, Serum Qualitative) Complete Blood Count with [id number] 10:29:07 Test Item Value Reference Range Interpretation [...] code = 5.4 N Instr WBC) Automated [id number] 10:29:07 Test Item Value Reference Range Interpretation Comments Neutro Auto (test code = Neutro Auto) 63.6 % N Lymph Auto (test code = Lymph Auto) 29.6 % N [place] Auto (test code = [place] Auto) 5.4 % N Eos, Auto (test code = Eos, Auto) 1.0 % N Basophil Auto (test code = Basophil 0.4 % N Auto) Neutro Absolute (test code = Neutro 3.5 x10 2.7-7.3 Absolute) Lymph Absolute (test code = Lymph 1.6 x10 0.8-3.5 Absolute) [place] Absolute (test code = [place] 0.3 x10 0.3-0.9 Absolute) Eos Absolute (test code = Eos 0.0 x10 0.0-0.3 Absolute) Baso Absolute (test code = Baso 0.0 x10 0.0-0.1 Absolute)
[2020-05-19 21:31] LABS: Absolute Lymphocytes (CBC) 1.8 K/uL (0.7-4.9); Basophils % 0.4 % (0-1.3); MPV 8.8 fL (7.6-11.3); RBC Red Blood Cell Count 4.86 M/uL (3.86-4.86)
[2020-05-19 21:42] LABS: BUN Blood Urea Nitrogen 9 mg/dL (7-18); Bicarbonate 26 mmol/L (21-32); Glucose Level 91 mg/dL (74-106); Potassium 3.7 mmol/L (3.5-5.1); Sodium Level 139 mmol/L (136-145)
--- NOTE | 2020-05-19 22:44 | EDPHYS ---
Physician Documentation [facility] Name: Arianne Glass Age: 30 yrs Sex: Female : 1990 Arrival Date: 05/19/2020 Time: 19:27 Bed 14 Private MD: ED Physician Homar Ag HPI: 05/19 23:46 This 30 yrs old Female presents to ER via Ambulatory with complaints of Neck kb Swelling, Sore Throat. 23:46 The patient or guardian complains of pain, tenderness. The symptoms are located on the kb left sternocleidomastoid and left posterior aspect of neck. Onset: The symptoms/episode began/occurred 1 month(s) ago. Context: The problem was sustained at home, The neck injury/problem resulted from from unknown cause. Associated signs and symptoms: Pertinent positives: feels like something is in throat and left tonsil appears bigger, Pertinent negatives: chills, fever, The patient denies any alcohol use. The patient is not apparently intoxicated. No neurological symptoms were experienced by the patient prior to arrival in the emergency department. The pain does not radiate. Modifying factors: The symptoms are alleviated by nothing. the symptoms are aggravated by nothing. Severity of symptoms: At their worst the symptoms were mild, moderate, in the emergency department the symptoms are unchanged. The patient has not experienced similar symptoms in the past. The patient has not recently seen a physician. 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 - Social history:: Smoking status: Patient denies any tobacco usage or history of. ROS: 23:44 Constitutional: Negative for fever, chills, and weight loss, Cardiovascular: Negative kb for chest pain, palpitations, and edema, Respiratory: Negative for shortness of breath, cough, wheezing, and pleuritic chest pain, Abdomen/GI: Negative for abdominal pain, nausea, vomiting, diarrhea, and constipation. 23:44 ENT: Positive for foreign body sensation, sore throat. 23:44 Neuro: Positive for headache. Exam: 23:44 Constitutional: This is a well developed, well nourished patient who is awake, alert, kb and in no acute distress. Head/Face: Normocephalic, atraumatic. Cardiovascular: Regular rate and rhythm with a normal S1 and S2. No gallops, murmurs, or rubs. No pulse deficits. Respiratory: Respirations even and unlabored. No increased work of breathing, no retractions or nasal flaring. Abdomen/GI: Soft, non-tender. No distention Skin: Warm, dry with normal turgor. Normal color with no rashes, no lesions, and no evidence of cellulitis. MS/ Extremity: Pulses equal, no cyanosis. Neurovascular intact. Full, normal range of motion. Neuro: Awake and alert, GCS 15, oriented to person, place, time, and situation. Moves all extremities. Normal gait. 23:44 ENT: Nose: is normal, Mouth: is normal, Posterior pharynx: is normal. 23:44 Neck: Lymph nodes: lymphadenopathy is appreciated, anterior cervical nodes. Vital Signs: 20:12 BP 105 / 81; Pulse 84; Resp 17; Temp 98.7; Pulse Ox 100% ; Weight 104.33 kg; Height 5 ll1 ft. 7 in. (170.18 cm); Pain 4/10; 22:30 BP 106 / 70; Pulse 72; Resp 18; Pulse Ox 100% on R/A; wh 20:12 Body Mass Index 36.02 (104.33 kg, 170.18 cm) ll1 MDM: 20:56 Patient medically screened. kb 23:44 Data reviewed: vital signs, nurses notes. Data interpreted: Pulse oximetry: on room air kb is 100 %. Interpretation: normal. Counseling: I had a detailed discussion with the patient and/or guardian regarding: the historical points, exam findings, and any diagnostic results supporting the discharge/admit diagnosis, lab results, radiology results, the need for outpatient follow up, a family practitioner, to return to the emergency department if symptoms worsen or persist or if there are any questions or concerns that arise at home. 05/20 00:03 ED course: Pt called and reports vomiting x3 since taking augmentin. Pt educated not to kb continue augmentin that was prescribed. I called zithromax and zofran into [facility] in [place]. 05/19 19:44 Order name: Strep; Complete Time: 22:00 tw4 05/19 21:07 Order name: CBC with Diff kb 05/19 21:07 Order name: Basic Metabolic Panel; Complete Time: 22:00 kb 05/19 21:07 Order name: Tensas Screen Profile; Complete Time: 22:00 kb 05/19 21:08 Order name: CBC with Automated Diff; Complete Time: 22:00 EDMS 05/19 21:27 Order name: Throat Culture EDWI 05/19 21:07 Order name: IV Start; Complete Time: 21:17 kb 05/19 21:07 Order name: CT Soft Tissue Neck W/contr kb Administered Medications: 05/19 22:51 Drug: Augmentin (Amoxicillin-Clavulanate) 875 mg Route: PO; wh 22:55 Follow up: Response: No adverse reaction Disposition: 05/20 05:35 Co-signature as Attending Physician, Homar Ag MD I agree with the assessment and tw4 plan of care. Disposition: 05/19/20 22:43 Discharged to Home. Impression: Acute sinusitis. - Condition is Stable. - Discharge Instructions: Sinusitis, Adult, [id number]. - Prescriptions for Augmentin 875- 125 mg Oral Tablet - take 1 tablet by ORAL route every 12 hours for 10 days; 20 tablet. - Medication Reconciliation Form, Thank You Letter, Antibiotic Education, Prescription Opioid Use form. - Follow up: Emergency Department; When: As needed; Reason: Worsening of condition. Follow up: Private Physician; When: 2 - 3 days; Reason: Recheck today's complaints, Continuance of care, Re-evaluation by your physician. Signatures: Dispatcher [employer] [facility] Tammy Haines, CHANTELLE CAGE-Ramin Grossman, RN RN Homar Ag MD MD tw4 Alyssa Michele RN RN ll1 Corrections: (The following items were deleted from the chart) 05/19 22:56 22:43 05/19/2020 22:43 Discharged to Home. Impression: Acute sinusitis. Condition is wh Stable. Forms are Medication Reconciliation Form, Thank You Letter, Antibiotic Education, Prescription Opioid Use. Follow up: Emergency Department; When: As needed; Reason: Worsening of condition. Follow up: Private Physician; When: 2 - 3 days; Reason: Recheck today's complaints, Continuance of care, Re-evaluation by your physician. kb
--- NOTE | 2020-05-19 22:44 | ER ---
Nurse's Notes [facility] Name: Arianne Galss Age: 30 yrs Sex: Female : 1990 Arrival Date: 05/19/2020 Time: 19:27 Bed 14 Private MD: Diagnosis: Acute sinusitis Presentation: 05/19 20:12 Chief complaint: Patient states: Sore throat, neck pain, BEDOYA, body aches for 3 weeks. No ll1 known fever. + nausea. Coronavirus screen: Client denies travel out of the [place] in the last 14 days. difficulty breathing, fatigue, headache, muscle pain, nausea, shortness of breath, sore throat, loss of taste or smell, Client presents with at least one sign or symptom that may indicate coronavirus-19. Standard/surgical mask placed on the client. Ebola Screen: Patient denies travel to an Ebola-affected area in the 21 days before illness onset. Acute neurological deficit: none identified. Initial Sepsis Screen: Does the patient meet any 2 criteria? No. Patient's initial sepsis screen is negative. Does the patient have a suspected source of infection? Yes: Other: throat. Risk Assessment: Do you want to hurt yourself or someone else? Patient reports no desire to harm self or others. Onset of symptoms was April 28, 2020. 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 - Social history:: Smoking status: Patient denies any tobacco usage or history of. Screenin:30 Abuse screen: Denies threats or abuse. Denies injuries from another. Nutritional wh screening: No deficits noted. Tuberculosis screening: No symptoms or risk factors identified. Fall Risk None identified. Assessment: 21:30 General: Appears in no apparent distress. Behavior is calm, cooperative, appropriate wh for age. Pain: Denies pain. Neuro: Level of Consciousness is awake, alert, obeys commands, Oriented to person, place, time, situation, Appropriate for age. Cardiovascular: Capillary refill < 3 seconds. Respiratory: Airway is patent Respiratory effort is even, unlabored, Respiratory pattern is regular, symmetrical. GI: Abdomen is non-distended. : No signs and/or symptoms were reported regarding the genitourinary system. EENT: Throat is pink. Derm: Skin is intact, is healthy with good turgor, Skin is pink, warm \T\ dry. normal. Musculoskeletal: Circulation, motion, and sensation intact. 22:40 Reassessment: Patient appears in no apparent distress at this time. No changes from previously documented assessment. Patient and/or family updated on plan of care and expected duration. Pain level reassessed. Patient is alert, oriented x 3, equal unlabored respirations, skin warm/dry/pink. Vital Signs: 20:12 BP 105 / 81; Pulse 84; Resp 17; Temp 98.7; Pulse Ox 100% ; Weight 104.33 kg; Height 5 ll1 ft. 7 in. (170.18 cm); Pain 4/10; 22:30 BP 106 / 70; Pulse 72; Resp 18; Pulse Ox 100% on R/A; wh 20:12 Body Mass Index 36.02 (104.33 kg, 170.18 cm) ll1 ED Course: 19:27 Patient arrived in ED. cl3 20:14 Triage completed. ll1 20:15 Arm band placed on. ll1 20:56 Ramin Paulino, RN is Primary Nurse. 20:56 Tammy Haines FNP-C is PHCP. kb 20:56 Homar Ag MD is Attending Physician. kb 21:30 Patient has correct armband on for positive identification. Bed in low position. Call light in reach. Side rails up X 1. Pulse ox on. NIBP on. 21:30 Inserted saline lock: 20 gauge in right antecubital area, using aseptic technique. Blood collected. 22:06 CT Soft Tissue Neck W/contr In Process Unspecified. EDMS 22:56 No provider procedures requiring assistance completed. IV discontinued, intact, bleeding controlled, No redness/swelling at site. Administered Medications: 22:51 Drug: Augmentin (Amoxicillin-Clavulanate) 875 mg Route: PO; 22:55 Follow up: Response: No adverse reaction Outcome: 22:43 Discharge ordered by . kb 22:56 Discharged to home ambulatory. 22:56 Condition: stable 22:56 Discharge instructions given to patient, Instructed on discharge instructions, follow up and referral plans. medication usage, POC Demonstrated understanding of instructions, follow-up care, medications, POC Prescriptions given X 1. 22:56 Patient left the ED. Signatures: Dispatcher [employer] EDMS Tammy Haines, NILES-Cal CAGE-Ramin Grossman RN RN Matt Michele cl3 Alyssa Michele RN RN ll1 Corrections: (The following items were deleted from the chart) 22:45 22:45 21 [facility]
[2020-05-19] MEDS ORDERED: AMOX/K CLAV 875 MG TAB ONE (23:07)
--- NOTE | 2020-05-20 16:44 | RAD REPORT ---
EXAM DESCRIPTION: CT - Soft Tissue Neck W/Contr - 05/20/2020 2:35 am CLINICAL HISTORY: The patient is 30 years old and is Female; SWELLING TECHNIQUE: Axial computed tomography images of the neck with intravenous contrast. Sagittal and co shukri reformatted images were created and reviewed. This CT exam was performed using one or more of the following dose reduction techniques: automated exposure control, adjustment of the mA and/or k V according to patient size, and/or use of iterative reconstruction technique. COMPARISON: No relevant prior studies available. FINDINGS: OROPHARYNX: Unremarkable. No significant tonsillar enlargement. No peritonsillar abs cess. HYPOPHARYNX: Unremarkable. LARYNX: Unremarkable. Normal epiglottis. TRACHEA: Unremarkable. RETROPHARYNGEAL SPACE: Unremarkable. SUBMANDIBULAR/PAROTID GLANDS: Unremarkable. Glands are normal in size. THYROID: Unremarkable. No enlarged or calcified nodules. BONES/JOINTS: No acute fracture. SOFT TISSUES: The soft tissues are normal. VASCULATURE: Unremarkable. Normal in course and caliber. LYMPH NODES: Minimal shotty bilateral cervical chain lymph nodes are present. SINUSES: Air-fluid level within the left maxillary sinus is present. LUNG APICES: The lung apices are clear. IMPRESSION: 1. No evidence of tonsillitis or peritonsillar abscess. 2. Findings suggest left maxillary sinus disease. Electronically signed by: Kassi Sifuentes MD 05/19/2020 10:13 PM CDT Due to temporary technical issues with the PACS/Fluency reporting system, reports are being signed by the in house radiologists without review as a courtesy to insure prompt reporting. The interpreting radiologist is fully responsible for the content of the report.
[2020-05-20 18:32] VITALS: TEMP 98.7; O2SAT 100
[2020-05-20 18:33] VITALS: BP 106/70
== END 2020-05-19 22:56 | disposition home or self-care (01) ==
LOC: ER 19:26
DX: J01.90 Acute sinusitis, unspecified (principal); Z98.82 Breast implant status
CPT/HCPCS: 36415; 70491; 80048; 85025; 86308; 87070; 87081; 99284; Q9967

== ENCOUNTER 2020-05-23 10:16 | Emergency (ER) | payer SELFPAY ==
--- OUTSIDE RECORDS SUMMARY | 2020-05-23 10:19 | XMS REPORT | Continuity of Care Document ---
:1990 Author Organization [facility] t Address [address] [place] [address] Care Team Providers Name Role Phone Michael Aguilera MD Attending Clinician Sagar BARNARD Attending Clinician Problems This patient has no known problems. Allergies, Adverse Reactions, Alerts This patient has no known allergies or adverse reactions. Medications This patient has no known medications. Procedures This patient has no known procedures. Encounters Start End Encounter Admission Attending Care Care Encounter Source Date/Time Date/Time Type Type Clinicians Facility Department ID 2020-05-22 2020-05-22 Telephone ROEL Aguilera [id number] 00:00:00 00:00:00 Jeancarlos Garces [id number] [place] [id number] Ingrid [id number] nal 044 [facility] 2020-05-20 2020-05-20 Office ROEL Keith [id number] 09:42:43 10:02:43 Visit Denton Garces [id number] [place] [id number] [place] [id number] nal 059 [facility] 2020-05-17 2020-05-17 Emergency E MHBL MHBL [id number] [facility]BL 20:32:00 20:32:00 2020-05-17 2020-05-17 Telephone ROEL Aguilera [id number] 00:00:00 00:00:00 Jeancarlos Garces [id number] [place] [id number] Ingrid [id number] [facility] 2018-12-25 2018-12-[address] [facility] [id number] [facility] 22:16:00 22:16:00 Results Test Description Test Time [...] code = AST) 16 IntlUnit/L 15-37 Creatine [id number] 10:39:14 Test Item Value Reference Range Interpretation Comments CK (test code = CK) 65 U/L 26-192 Comprehensive Metabolic [id number] 10:39:14 Test Item Value Reference Range Interpretation [...] eGFR >60 mL/min/1.73 m2 N AA) Lipase [id number] 10:39:14 Test Item Value Reference Range Interpretation Comments Lipase Level (test code = Lipase 88 U/L 73-393 Level) Comprehensive Metabolic [id number] 10:39:14 Test Item Value Reference Range Interpretation [...] mL/min/1.73 m2 N eGFR Non-AA) Beta HCG [id number] 10:33:19 Test Item Value Reference Range Interpretation Comments Beta HCG, Serum Qualitative (test Negative Negative code = Beta HCG, Serum Qualitative) Complete Blood Count with [id number] 10:29:07 Test Item Value Reference Range Interpretation [...] code = 5.4 N Instr WBC) Automated [id number] 10:29:07 Test Item Value Reference Range Interpretation Comments Neutro Auto (test code = Neutro Auto) 63.6 % N Lymph Auto (test code = Lymph Auto) 29.6 % N Terry Auto (test code = Terry Auto) 5.4 % N Eos, Auto (test code = Eos, Auto) 1.0 % N Basophil Auto (test code = Basophil 0.4 % N Auto) Neutro Absolute (test code = Neutro 3.5 x10 2.7-7.3 Absolute) Lymph Absolute (test code = Lymph 1.6 x10 0.8-3.5 Absolute) Terry Absolute (test code = Terry 0.3 x10 0.3-0.9 Absolute) Eos Absolute (test code = Eos 0.0 x10 0.0-0.3 Absolute) Baso Absolute (test code = Baso 0.0 x10 0.0-0.1 Absolute)
[2020-05-23 11:21] LABS: Absolute Lymphocytes (CBC) 1.3 K/uL (0.7-4.9); Basophils % 0.6 % (0-1.3); Hematocrit 37.9 % (36.0-45.0); RBC Red Blood Cell Count 4.83 M/uL (3.86-4.86)
--- NOTE | 2020-05-23 11:33 | RAD REPORT ---
EXAM DESCRIPTION: RAD - Chest Single View - 05/23/2020 11:24 am CLINICAL HISTORY: CHEST PAIN Chest pain. COMPARISON: Chest Single View dated 05/01/2020 FINDINGS: Portable technique limits examination quality. The lungs are grossly clear. The heart is normal in size. No displaced fractures. IMPRESSION: No acute intrathoracic process suspected.
[2020-05-23 11:44] LABS: Protime INR 1.14
[2020-05-23 13:19] LABS: ALT/SGPT 28 U/L (12-78); AST/SGOT 10 U/L (15-37); Albumin 3.9 g/dL (3.4-5.0); BUN Blood Urea Nitrogen 6 mg/dL (7-18); Bicarbonate 26 mmol/L (21-32); Bilirubin Direct < 0.1 mg/dL (0-0.2); Bilirubin Total 0.2 mg/dL (0.2-1.0); Glucose Level 117 mg/dL (74-106); Magnesium 2.3 mg/dL (1.8-2.4); NT PRO-BNP 69 pg/mL (<125); Potassium 3.8 mmol/L (3.5-5.1); Protein, Total 7.8 g/dL (6.4-8.2); Sodium Level 141 mmol/L (136-145); Troponin (Emerg Dept Use Only) < 0.02 ng/mL (0.0-0.045)
--- NOTE | 2020-05-23 13:40 | ER ---
Nurse's Notes [facility] Name: Arianne Glsas Age: 30 yrs Sex: Female : 1990 Arrival Date: 05/23/2020 Time: 10:19 Bed 14 Private MD: Boy Quinn Diagnosis: Chest pain, unspecified Presentation: 05/23 10:24 Chief complaint: Patient states: Chest, arm, back and neck pain x 1 month. Pt reports ss she was admitted to the hospital and had a negative stress test a month ago and was told all of her test looked good, began taking Protonix for GERD which helped her chest pain. Since last night, CP is more "squeezing". Coronavirus screen: Client denies travel out of the [place] in the last 14 days. Ebola Screen: Patient denies exposure to infectious person. Patient denies travel to an Ebola-affected area in the 21 days before illness onset. Risk Assessment: Do you want to hurt yourself or someone else? Patient reports no desire to harm self or others. Onset of symptoms was April 2020. 10:24 Method Of Arrival: Ambulatory ss 10:24 Acuity: MOE 3 ss 11:02 Initial Sepsis Screen: Does the patient meet any 2 criteria? No. Patient's initial jl7 sepsis screen is negative. Does the patient have a suspected source of infection? No. Patient's initial sepsis screen is negative. 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 - Social history:: Smoking status: Patient denies any tobacco usage or history of. Screenin:29 Abuse screen: Denies threats or abuse. Denies injuries from another. Nutritional jl7 screening: No deficits noted. Tuberculosis screening: No symptoms or risk factors identified. Fall Risk IV access (20 points). Total House Fall Scale indicates No Risk (0-24 pts). Assessment: 10:25 General: Appears in no apparent distress. uncomfortable, Behavior is calm, cooperative, jl7 appropriate for age. Pain: Complains of pain in anterior aspect of left upper chest Pain radiates to right lateral posterior chest and right lateral anterior chest Pain currently is 8 out of 10 on a pain scale. Quality of pain is described as squeezing, Pain began 1 day ago. Is continuous. Neuro: Level of Consciousness is awake, alert, obeys commands, Oriented to person, place, time, situation. Cardiovascular: Heart tones S1 S2 present Patient's skin is warm and dry. Respiratory: Airway is patent Respiratory effort is even, unlabored, Respiratory pattern is regular, symmetrical, Breath sounds are clear bilaterally. Derm: Skin is pink, warm \\T\\ dry. 11:30 Reassessment: Patient appears in no apparent distress at this time. No changes from jl7 previously documented assessment. Patient and/or family updated on plan of care and expected duration. Pain level reassessed. Patient is alert, oriented x 3, equal unlabored respirations, skin warm/dry/pink. 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 Vital Signs: 10:29 BP 133 / 90; Pulse 85; Resp 16 S; Temp 97.6(O); Pulse Ox 100% on R/A; Pain 8/10; jl7 12:47 BP 138 / 81; Pulse 75; Resp 15; Pulse Ox 100% ; jl7 13:30 BP 142 / 81; Pulse 74; Resp 15; Pulse Ox 100% ; jl7 ED Course: 10:19 Patient arrived in ED. am2 10:19 Boy Quinn MD is Private Physician. am2 10:20 [facility] Cain [facility] jr8 10:20 Homar Ag MD is Attending Physician. jr8 10:25 Triage completed. ss 10:25 EKG done, by ED staff, reviewed by Sly FRIAS. jl7 10:28 Arm band placed on right wrist. ss 10:29 Cathy Inman RN is Primary Nurse. jl7 10:29 Patient has correct armband on for positive identification. Placed in gown. Bed in low jl7 position. Call light in reach. Side rails up X 1. campus monitor on. Pulse ox on. NIBP on. 10:29 Patient maintains SpO2 saturation greater than 95% on room air. jl7 10:35 Initial lab(s) drawn, by me, sent to lab. Inserted saline lock: 20 gauge in right kj1 antecubital area, using aseptic technique. Blood collected. 11:25 XRAY Chest (1 view) In Process Unspecified. EDMS 13:39 Boy Quinn MD is Referral Physician. jr8 14:16 No provider procedures requiring assistance completed. IV discontinued, intact, jl7 bleeding controlled, No redness/swelling at site. Pressure dressing applied. Administered Medications: No medications were administered Outcome: 13:39 Discharge ordered by . jr8 14:16 Discharged to home ambulatory. jl7 14:16 Condition: stable 14:16 Discharge instructions given to patient, Instructed on discharge instructions, follow up and referral plans. Demonstrated understanding of instructions, follow-up care. 14:16 Patient left the ED. jl7 Signatures: Dispatcher [employer] EDGA Jessica Gordon RN RN Sly Cain, ALTAGRACIA FRIAS jr8 Cathy Inamn RN RN jl7 Anayeli Laureano am2 Birgit Haines kj1 Corrections: (The following items were deleted from the chart) 10:42 10:28 Allergies: No Known Allergies; [facility]
--- NOTE | 2020-05-23 13:40 | EDPHYS ---
Physician Documentation [facility] Name: Arianne Glass Age: 30 yrs Sex: Female : 1990 Arrival Date: 05/23/2020 Time: 10:19 Bed 14 Private MD: Boy Quinn ED Physician Homar Ag HPI: 05/23 11:01 This 30 yrs old Female presents to ER via Ambulatory with complaints of Arm jr8 Pain - left, Chest Tightness, Back Pain. 11:01 The complaints affect the anterior aspect of left shoulder, left bicep, left jr8 antecubital area, dorsal aspect of left forearm, left wrist and left hand. Context: resulted from unknown cause. Onset: The symptoms/episode began/occurred 1 month(s) ago. Associated signs and symptoms: Pertinent positives: of the chest Pain. Patient reports having L arm pain with CP for 1 month. Was evaluated and treated for GERDs which healed the CP. Arm pain continued but has since worsened. The L arm pain is back with a tightening feeling in her heart that radiates to L jaw. She also describes a "jittering" feeling in her chest and jaw at night which she saw a Neurologist for. he has orders for blood work up to include thyroid panel. PMHx: Anxiety, breast implants. . 11:08 Denies Smoking, OBC, Drugs, prolonged time immobilized. Social ETOH use.. 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 - Social history:: Smoking status: Patient denies any tobacco usage or history of. ROS: 11:06 Neck: Negative for injury, pain, and swelling, Abdomen/GI: Negative for abdominal pain, jr8 nausea, vomiting, diarrhea, and constipation, Skin: Negative for injury, rash, and discoloration, Neuro: Negative for headache, weakness, numbness, tingling, and seizure. 11:06 Cardiovascular: Positive for chest pain, of the chest. 11:06 Respiratory: Positive for shortness of breath, at rest. 11:06 MS/extremity: Positive for pain, paresthesias, of the left arm. Exam: 11:07 Head/Face: Normocephalic, atraumatic. Eyes: Pupils equal round and reactive to light, jr8 extra-ocular motions intact. Lids and lashes normal. Conjunctiva and sclera are non-icteric and not injected. Cornea within normal limits. Periorbital areas with no swelling, redness, or edema. Chest/axilla: Normal chest wall appearance and motion. Nontender with no deformity. No lesions are appreciated. Cardiovascular: Regular rate and rhythm with a normal S1 and S2. No gallops, murmurs, or rubs. Normal PMI, no JVD. No pulse deficits. Respiratory: Lungs have equal breath sounds bilaterally, clear to auscultation and percussion. No rales, rhonchi or wheezes noted. No increased work of breathing, no retractions or nasal flaring. Abdomen/GI: Soft, non-tender, with normal bowel sounds. No distension or tympany. No guarding or rebound. No evidence of tenderness throughout. Back: No spinal tenderness. No costovertebral tenderness. Full range of motion. Skin: Warm, dry with normal turgor. Normal color with no rashes, no lesions, and no evidence of cellulitis. MS/ Extremity: Pulses equal, no cyanosis. Neurovascular intact. Full, normal range of motion. Neuro: Awake and alert, GCS 15, oriented to person, place, time, and situation. Cranial nerves II-XII grossly intact. Motor strength 5/5 in all extremities. Sensory grossly intact. Cerebellar exam normal. Normal gait. Vital Signs: 10:29 BP 133 / 90; Pulse 85; Resp 16 S; Temp 97.6(O); Pulse Ox 100% on R/A; Pain 8/10; jl7 12:47 BP 138 / 81; Pulse 75; Resp 15; Pulse Ox 100% ; jl7 13:30 BP 142 / 81; Pulse 74; Resp 15; Pulse Ox 100% ; jl7 MDM: 10:20 Patient medically screened. jr8 11:07 Data reviewed: vital signs, nurses notes, lab test result(s), EKG, radiologic studies. 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 Interpretation: normal. 13:39 Counseling: I had a detailed discussion with the patient and/or guardian regarding: [facility] historical points, exam findings, and any diagnostic results supporting the discharge/admit diagnosis, lab results, radiology results, the need for outpatient follow up, a family practitioner, to return to the emergency department if symptoms worsen or persist or if there are any questions or concerns that arise at home. 05/23 10:45 Order name: Basic Metabolic Panel [facility] 05/23 10:45 Order name: CBC with Diff [facility] 05/23 10:45 Order name: LFT's [facility] 05/23 10:45 Order name: Magnesium [facility] 05/23 10:45 Order name: NT PRO-BNP [facility] 05/23 10:45 Order name: PT-INR; Complete Time: 12:00 [facility] 05/23 10:45 Order name: Troponin (emerg Dept Use Only) [facility] 05/23 10:45 Order name: XRAY Chest (1 view); Complete Time: 11:36 [facility] 05/23 10:45 Order name: EKG; Complete Time: 10:46 [facility] 05/23 10:45 Order name: Cardiac monitoring; Complete Time: 10:56 [facility] 05/23 10:45 Order name: EKG - Nurse/Tech; Complete Time: 10:56 [facility] 05/23 10:46 Order name: Basic Metabolic Panel [facility] 05/23 10:46 Order name: CBC with Automated Diff; Complete Time: 11:22 [facility] 05/23 10:46 Order name: Liver (Hepatic) Function [facility] 05/23 10:45 Order name: IV Saline Lock; Complete Time: 10:56 [facility] 05/23 10:45 Order name: Labs collected and sent; Complete Time: 10:56 [facility] 05/23 10:45 Order name: O2 Per Protocol; Complete Time: 10:56 [facility] 05/23 10:45 Order name: O2 Sat Monitoring; Complete Time: 10:56 [facility] Administered Medications: No medications were administered Disposition: 18:28 Co-signature as Attending Physician, Homar Ag MD I agree with the assessment and 4 plan of care. Disposition: 05/23/20 13:39 Discharged to Home. Impression: Chest pain, unspecified. - Condition is Stable. - Discharge Instructions: Nonspecific Chest Pain, Chest Wall Pain. - Medication Reconciliation Form, Thank You Letter, Antibiotic Education, Prescription Opioid Use form. - Follow up: Boy Quinn MD; When: 2 - 3 days; Reason: Recheck today's complaints, Continuance of care, Re-evaluation by your physician. - Problem is new. - Symptoms have improved. Signatures: Dispatcher [employer] EDMS Jessica Godron RN RN Sly Cain PA PA jr8 Cathy Inman RN RN jl7 Homar Ag MD MD tw4 Corrections: (The following items were deleted from the chart) 10:42 10:28 Allergies: No Known Allergies; [facility] 14:16 13:39 05/23/2020 13:39 Discharged to Home. Impression: Chest pain, unspecified. jl7 Condition is Stable. Forms are Medication Reconciliation Form, Thank You Letter, Antibiotic Education, Prescription Opioid Use. Follow up: Boy Quinn; When: 2 - 3 days; Reason: Recheck today's complaints, Continuance of care, Re-evaluation by your physician. Problem is new. Symptoms have improved. jr8
[2020-05-23 14:22] LABS: Alkaline Phosphatase ND U/L (45-117)
[2020-05-23 14:27] VITALS: TEMP 97.6; O2SAT 100
[2020-05-23 14:30] VITALS: BP 142/81
== END 2020-05-23 14:16 | disposition home or self-care (01) ==
LOC: ER 10:16
DX: R07.9 Chest pain, unspecified (principal); R20.2 Paresthesia of skin; Z98.82 Breast implant status; Z88.1 Allergy status to other antibiotic agents; Z88.8 Allergy status to other drugs, medicaments and biological substances
CPT/HCPCS: 36415; 71045; 80048; 80076; 83735; 83880; 84484; 85025; 85610; 93005; 99285

== ENCOUNTER 2020-05-24 10:40 | Emergency (ER) | payer SELFPAY ==
--- OUTSIDE RECORDS SUMMARY | 2020-05-24 10:42 | XMS REPORT | Continuity of Care Document ---
:1990 Author Organization [facility] t Address [address] [place] [address] Care Team Providers Name Role Phone Michael [...] Facility Department ID 2020-05-22 2020-05-22 Telephone ROEL Augilera [id number] 00:00:00 00:00:00 Jeancarlos Garces [id number] [place] [id number]44 [facility] 2020-05-20 2020-05-20 Office ROEL Kieth [id number] 09:42:43 10:02:43 Visit Denton Garces [id number] [place] [id number]fl[id number]59 [facility] 2020-05-17 2020-05-17 Emergency E MHBL MHBL [id number] [facility]BL 20:32:00 20:32:00 2020-05-17 2020-05-17 Telephone ROEL Aguilera [id number] 00:00:00 00:00:00 Jeancarlos Garces [id number] [place] [id number] Ingrid [id number] [facility] 2018-12-25 2018-12-25 Emergency E [facility] [id number] [facility] 22:16:00 22:16:00 Results Test Description [...] code = AST) 16 IntlUnit/L 15-37 Creatine [id number] 10:39:14 Test Item Value Reference Range Interpretation Comments CK (test code = CK) 65 U/L 26-192 Comprehensive Metabolic [id number] 10:39:14 Test Item Value Reference Range Interpretation [...] eGFR >60 mL/min/1.73 m2 N AA) Lipase [id number] 10:39:14 Test Item Value Reference Range Interpretation Comments Lipase Level (test code = Lipase 88 U/L 73-393 Level) Comprehensive Metabolic [id number] 10:39:14 Test Item Value Reference Range Interpretation [...] mL/min/1.73 m2 N eGFR Non-AA) Beta HCG [id number] 10:33:19 Test Item Value Reference Range Interpretation Comments Beta HCG, Serum Qualitative (test Negative Negative code = Beta HCG, Serum Qualitative) Complete Blood Count with [id number] 10:29:07 Test Item Value Reference Range Interpretation [...] code = 5.4 N Instr WBC) Automated [id number] 10:29:07 Test Item Value Reference Range Interpretation Comments Neutro Auto (test code = Neutro Auto) 63.6 % N Lymph Auto (test code = Lymph Auto) 29.6 % N Barbour Auto (test code = Barbour Auto) 5.4 % N Eos, Auto (test code = Eos, Auto) 1.0 % N Basophil Auto (test code = Basophil 0.4 % N Auto) Neutro Absolute (test code = Neutro 3.5 x10 2.7-7.3 Absolute) Lymph Absolute (test code = Lymph 1.6 x10 0.8-3.5 Absolute) Barbour Absolute (test code = Barbour 0.3 x10 0.3-0.9 Absolute) Eos Absolute (test code = Eos 0.0 x10 0.0-0.3 Absolute) Baso Absolute (test code = Baso 0.0 x10 0.0-0.1 Absolute)
[2020-05-24 12:43] LABS: Absolute Lymphocytes (CBC) 1.6 K/uL (0.7-4.9); Basophils % 0.7 % (0-1.3); Hematocrit 38.3 % (36.0-45.0); Lymphocytes % 26.6 % (15.3-44.8); MPV 8.8 fL (7.6-11.3); RBC Red Blood Cell Count 4.88 M/uL (3.86-4.86)
[2020-05-24] MEDS ORDERED: MAGNES/ALUMIN/SIMET 30ML UCUP ONE (12:54)
[2020-05-24] MEDS ORDERED: LIDOCAINE VISCOUS 2% SOLN 15 ML UDC ONE (12:54)
[2020-05-24 13:04] LABS: BUN Blood Urea Nitrogen 4 mg/dL (7-18); Bicarbonate 26 mmol/L (21-32); Glucose Level 85 mg/dL (74-106); Sodium Level 140 mmol/L (136-145)
[2020-05-24 13:11] LABS: C-Reactive Protein < 2.90 mg/L (<3.00)
--- NOTE | 2020-05-24 13:44 | EDPHYS ---
Physician Documentation [facility] Name: Arianne Glass Age: 30 yrs Sex: Female : 1990 Arrival Date: 05/24/2020 Time: 10:41 Bed 24 Private MD: ED Physician Esau Llanos HPI: 05/24 12:22 This 30 yrs old Female presents to ER via Ambulatory with complaints of Chest jr8 Tightness. 12:22 The patient or guardian reports chest pain that is located primarily in the substernal jr8 area, anterior chest wall. The pain radiates to back. Associated signs and symptoms: The patient has no apparent associated signs or symptoms. The chest pain is described as burning, a pressure, squeezing. Duration: The patient or guardian reports multiple episodes. Modifying factors: The symptoms are alleviated by nothing. the symptoms are aggravated by movement. Severity of pain: At its worst the pain was moderate in the emergency department the pain is unchanged. The patient has experienced similar episodes in the past, a few times. The patient has been recently seen by a physician:. Patient seen in ED yesterday and found to have no acute findings on imaging, ecg, or labs. Patient has been seen a few other times for this in the past month. Had CT dissection protocol completed as well without acute findings. Came back today for worsening of her chest pain. 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 - Social history:: Smoking status: Patient denies any tobacco usage or history of. ROS: 12:22 Eyes: Negative for injury, pain, redness, and discharge, ENT: Negative for injury, jr8 pain, and discharge, Neck: Negative for injury, pain, and swelling, Respiratory: Negative for shortness of breath, cough, wheezing, and pleuritic chest pain, Abdomen/GI: Negative for abdominal pain, nausea, vomiting, diarrhea, and constipation, Back: Negative for injury. Positive for pain MS/Extremity: Negative for injury and deformity, Skin: Negative for injury, rash, and discoloration, Neuro: Negative for headache, weakness, numbness, tingling, and seizure. 12:22 Cardiovascular: Positive for chest pain, Negative for edema, orthopnea, palpitations, paroxysmal nocturnal dyspnea. Exam: 12:22 ENT: Nares patent. No nasal discharge, no septal abnormalities noted. Tympanic jr8 membranes are normal and external auditory canals are clear. Oropharynx with no redness, swelling, or masses, exudates, or evidence of obstruction, uvula midline. Mucous membranes moist. Neck: Trachea midline, no thyromegaly or masses palpated, and no cervical lymphadenopathy. Supple, full range of motion without nuchal rigidity, or vertebral point tenderness. No Meningismus. Chest/axilla: Normal chest wall appearance and motion. Nontender with no deformity. No lesions are appreciated. Breasts without abnormality. No tenderness upon palpation. Axillary lympnodes not appreciated on exam Cardiovascular: Regular rate and rhythm with a normal S1 and S2. No gallops, murmurs, or rubs. Normal PMI, no JVD. No pulse deficits. Respiratory: Lungs have equal breath sounds bilaterally, clear to auscultation and percussion. No rales, rhonchi or wheezes noted. No increased work of breathing, no retractions or nasal flaring. Abdomen/GI: Soft, non-tender, with normal bowel sounds. No distension or tympany. No guarding or rebound. No evidence of tenderness throughout. Back: No spinal tenderness. No costovertebral tenderness. Full range of motion. Skin: Warm, dry with normal turgor. Normal color with no rashes, no lesions, and no evidence of cellulitis. MS/ Extremity: Pulses equal, no cyanosis. Neurovascular intact. Full, normal range of motion. Neuro: Awake and alert, GCS 15, oriented to person, place, time, and situation. Cranial nerves II-XII grossly intact. Motor strength 5/5 in all extremities. Sensory grossly intact. Cerebellar exam normal. Normal gait. Vital Signs: 10:47 BP 116 / 80; Pulse 70; Resp 16 S; Temp 97.4(TE); Pulse Ox 100% on R/A; Weight 104.33 kg ca1 (R); Height 5 ft. 7 in. (170.18 cm) (R); Pain 8/10; 12:21 BP 114 / 85; Pulse 72; Resp 16; Pulse Ox 100% on R/A; vg1 13:00 BP 105 / 67; Pulse 78; Resp 16; Pulse Ox 100% on R/A; vg1 10:47 Body Mass Index 36.02 (104.33 kg, 170.18 cm) ca1 MDM: 11:54 Patient medically screened. jr8 13:38 Data reviewed: vital signs, nurses notes, old medical records, lab test result(s), EKG, jr8 and as a result, I will discharge patient. Data interpreted: Pulse oximetry: on room air is 100 %. Interpretation: normal. 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 Response to treatment: the patient's symptoms have markedly improved after treatment. ED course: Patient doing markedly better after GI cocktail. Discussed with patient that her diagnosis is two fold. That she appears to have bad esophagitis and gastritis but also continued muscle pain from postural problems. Will put on muscle relaxant along with adding sucralfate. Dietary recommendations given and also counseled on not taking any NSAID based products . 05/24 12:16 Order name: CBC with Diff [facility] 05/24 12:16 Order name: Basic Metabolic Panel; Complete Time: 13:25 8 05/24 12:16 Order name: ESR; Complete Time: 13:07 jr8 05/24 12:16 Order name: CRP; Complete Time: 13:25 8 05/24 12:16 Order name: CBC with Automated Diff; Complete Time: 13:07 EDME 05/24 12:16 Order name: IV; Complete Time: 12:32 jr8 05/24 12:16 Order name: EKG - Nurse/Tech; Complete Time: 12:23 jr8 05/24 12:16 Order name: EKG; Complete Time: 12:16 jr8 Administered Medications: 12:43 Drug: GI Cocktail without - (Maalox Suspension 30 ml, Lidocaine Liquid 2 % 15 vg1 ml) Route: PO; 13:53 Follow up: Response: No adverse reaction; Pain is decreased vg1 Disposition: 19:21 Co-signature as Attending Physician, Esau Llanos MD I agree with the assessment and kdr plan of care. Disposition: 05/24/20 13:43 Discharged to Home. Impression: Esophagitis. - Condition is Stable. - Discharge Instructions: Esophagitis, Gastritis, Adult. - Prescriptions for sucralfate 1 gram Oral tablet - take 1 tablet by ORAL route 4 times per day on an empty stomach 1 hour before meals and at bedtime; 120 tablet. Robaxin 500 mg Oral Tablet - take 2 tablet by ORAL route every 6 hours As needed; 40 tablet. - Medication Reconciliation Form, Thank You Letter, Antibiotic Education, Prescription Opioid Use form. - Follow up: Rony Lloyd MD; When: 5 - 6 days; Reason: Recheck today's complaints, Continuance of care, Re-evaluation by your physician. - Problem is new. - Symptoms have improved. Signatures: Dispatcher [employer] EDMS Esau Llanos MD MD [facility] Sly Cain PA PA jr8 Ailyn Rodriguez RN RN ca1 Misty Wilkins RN RN vg1 Corrections: (The following items were deleted from the chart) 13:56 13:43 05/24/2020 13:43 Discharged to Home. Impression: Esophagitis. Condition is vg1 Stable. Forms are Medication Reconciliation Form, Thank You Letter, Antibiotic Education, Prescription Opioid Use. Follow up: Rony Lloyd; When: 5 - 6 days; Reason: Recheck today's complaints, Continuance of care, Re-evaluation by your physician. Problem is new. Symptoms have improved. jr8
--- NOTE | 2020-05-24 13:44 | ER ---
Nurse's Notes [facility] Name: Arianne Glass Age: 30 yrs Sex: Female : 1990 Arrival Date: 05/24/2020 Time: 10:41 Bed 24 Private MD: Diagnosis: Esophagitis Presentation: 05/24 10:47 Chief complaint: Patient states: Was here yesterday, for the same thing. Been having ca1 midsternal chest pain since last month, I was admitted then. It never went away. It hurts all the time. I can't eat cause I am very nauseous. Denies cough. Reports SOB. Coronavirus screen: Client denies travel out of the [place] in the last 14 days. shortness of breath, Client presents with at least one sign or symptom that may indicate coronavirus-19. Standard/surgical mask placed on the client. Provider contacted for isolation considerations. Ebola Screen: Patient negative for fever greater than or equal to 101.5 degrees Fahrenheit, and additional compatible Ebola Virus Disease symptoms Patient denies exposure to infectious person. Patient denies travel to an Ebola-affected area in the 21 days before illness onset. No symptoms or risks identified at this time. Initial Sepsis Screen: Does the patient meet any 2 criteria? No. Patient's initial sepsis screen is negative. Does the patient have a suspected source of infection? No. Patient's initial sepsis screen is negative. Risk Assessment: Do you want to hurt yourself or someone else? Patient reports no desire to harm self or others. Onset of symptoms was May 24, 2020. 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 - Social history:: Smoking status: Patient denies any tobacco usage or history of. Screenin:21 Abuse screen: Denies threats or abuse. Nutritional screening: No deficits noted. vg1 Tuberculosis screening: No symptoms or risk factors identified. Fall Risk No fall in past 12 months (0 pts). No secondary diagnosis (0 pts). IV access (20 points). Ambulatory Aid- None/Bed Rest/Nurse Assist (0 pts). Gait- Normal/Bed Rest/Wheelchair (0 pts) Mental Status- Oriented to own ability (0 pts). Total House Fall Scale indicates No Risk (0-24 pts). Assessment: 10:53 Reassessment: Notified [facility] Heart. No EKG ordered at this time. ca1 12:05 General: Appears in no apparent distress. comfortable, Behavior is calm, cooperative. vg1 Pain: Complains of pain in back and chest and DARIA axillary Pt states pain radiates from back to midsternum of chest Pain currently is 8 out of 10 on a pain scale. Quality of pain is described as burning, dull. Neuro: Level of Consciousness is awake, alert, obeys commands, Oriented to person, place, time, situation. Cardiovascular: Patient's skin is warm and dry. Respiratory: Airway is patent Respiratory effort is even, unlabored. GI: No signs and/or symptoms were reported involving the gastrointestinal system. : No signs and/or symptoms were reported regarding the genitourinary system. EENT: No signs and/or symptoms were reported regarding the EENT system. Derm: Skin is intact, is healthy with good turgor. Musculoskeletal: Circulation, motion, and sensation intact. 13:37 Reassessment: Patient appears in no apparent distress at this time. Patient and/or vg1 family updated on plan of care and expected duration. Pain level reassessed. Patient is alert, oriented x 3, equal unlabored respirations, skin warm/dry/pink. Stated feeling a little better after the GI cocktail but still having back pain that feels sharp. Vital Signs: 10:47 BP 116 / 80; Pulse 70; Resp 16 S; Temp 97.4(TE); Pulse Ox 100% on R/A; Weight 104.33 kg ca1 (R); Height 5 ft. 7 in. (170.18 cm) (R); Pain 8/10; 12:21 BP 114 / 85; Pulse 72; Resp 16; Pulse Ox 100% on R/A; vg1 13:00 BP 105 / 67; Pulse 78; Resp 16; Pulse Ox 100% on R/A; vg1 10:47 Body Mass Index 36.02 (104.33 kg, 170.18 cm) ca1 ED Course: 10:41 Patient arrived in ED. as 10:51 Triage completed. ca1 10:51 Arm band placed on right wrist. ca1 11:53 Misty Wilkins, RN is Primary Nurse. vg1 11:54 Sly Cain PA is PHCP. jr8 11:54 Esau Llanos MD is Attending Physician. jr8 12:22 Patient has correct armband on for positive identification. Bed in low position. Call vg1 light in reach. Side rails up X 1. 12:22 Pulse ox on. NIBP on. vg1 12:22 Patient maintains SpO2 saturation greater than 95% on room air. vg1 12:32 Inserted saline lock: 20 gauge in right antecubital area, using aseptic technique. dh4 Blood collected. 13:42 Rony Lloyd MD is Referral Physician. jr8 13:55 No provider procedures requiring assistance completed. IV discontinued, intact, vg1 bleeding controlled, No redness/swelling at site. Pressure dressing applied. Administered Medications: 12:43 Drug: GI Cocktail without - (Maalox Suspension 30 ml, Lidocaine Liquid 2 % 15 vg1 ml) Route: PO; 13:53 Follow up: Response: No adverse reaction; Pain is decreased vg1 Outcome: 13:43 Discharge ordered by . jr8 13:56 Discharged to home ambulatory. vg1 13:56 Condition: stable 13:56 Discharge instructions given to patient, Instructed on discharge instructions, follow up and referral plans. medication usage, Demonstrated understanding of instructions, follow-up care, medications, Prescriptions given X 2. 13:56 Patient left the ED. vg1 Signatures: Janis Meadwos Josh, PA PA jr8 Ailyn Rodriguez RN RN ca1 Osman Michael Misty Durand, BEBA RN vg1
[2020-05-24 14:04] VITALS: TEMP 97.4; O2SAT 100
[2020-05-24 14:07] VITALS: BP 105/67
== END 2020-05-24 13:56 | disposition home or self-care (01) ==
LOC: ER 10:40
DX: K20.90 Esophagitis, unspecified without bleeding (principal); Z98.82 Breast implant status; Z88.1 Allergy status to other antibiotic agents; Z88.8 Allergy status to other drugs, medicaments and biological substances
CPT/HCPCS: 36415; 80048; 85025; 85652; 86140; 99284